=== PATIENT | female | born 1940 | race Caucasian/White ===

== ENCOUNTER → 2017-09-06 | Outpatient (REF) | payer MEDICARE, MEDICAID ==
[~2017-09-06] MED LIST: /WARF25TA OR; /WARF25TA PO; ACET65TA PO; AMLODIPINE BESYLATE PO; CALCIUM PLUS VIT D PO; CELEBREX PO; COUM2.5T17 PO; DYAZ37.5 OR; TYLE325T5 PO; ULTR50TA8 PO; [UNRECOGNIZED DRUG - OTHER]; fleet
[2017-09-06 12:34] LABS: ALBUMIN 3.6 GM/DL (3.2-5.2); ALBUMIN/GLOBULIN RATIO 1.13 (1.00-1.93); ALKALINE PHOSPHATASE 123 U/L (45-117); ALT/SGPT 16 U/L (12-78); ANION GAP 7 MEQ/L (8-16); AST/SGOT 13 U/L (15-37); BILIRUBIN,TOTAL 0.4 MG/DL (0.2-1.0); BLOOD UREA NITROGEN 16 MG/DL (7-18); CALCIUM LEVEL 9.1 MG/DL (8.8-10.2); CARBON DIOXIDE LEVEL 29 MEQ/L (21-32); CHLORIDE LEVEL 104 MEQ/L (98-107); CHOLESTEROL LEVEL 228 MG/DL (<200); CREATININE FOR GFR 0.76 MG/DL (0.55-1.02); GLOMERULAR FILTRATION RATE > 60.0 (>39); GLUCOSE, FASTING 91 MG/DL (83-110); POTASSIUM SERUM 3.7 MEQ/L (3.5-5.1); SODIUM LEVEL 140 MEQ/L (136-145); TOTAL PROTEIN 6.8 GM/DL (6.4-8.2); TRIGLYCERIDES LEVEL 85 MG/DL (<150)
== END ==
LOC: M SFHCCLAY 07:00
PROVIDERS: ATTEND Family Medicine
DX: E78.5 Hyperlipidemia, unspecified (principal)

== ENCOUNTER → 2017-10-19 | Outpatient (REF) | payer MEDICARE, MEDICAID ==
[2017-10-19 12:37] LABS: MEAN CORPUSCULAR HGB CONC 32.5 g/dl (32.0-36.5); MEAN CORPUSCULAR VOLUME 89.1 fl (80.0-96.0); PLATELET COUNT, AUTOMATED 275 10^3/uL (150-450); RED CELL DISTRIBUTION WIDTH 13.2 % (11.5-14.5)
== END ==
LOC: M LABDRAWC 11:41
PROVIDERS: ATTEND Obstetrics & Gynecology
DX: Z01.818 Encounter for other preprocedural examination (principal); N81.4 Uterovaginal prolapse, unspecified

== ENCOUNTER → 2018-01-17 | Outpatient (REF) | payer MEDICARE, MEDICAID ==
[2018-01-17 11:39] LABS: BASO # 0.1 10^3/uL (0.0-0.2); EOS # 0.3 10^3/uL (0.0-0.50); EOS % 4.7 % (0.0-3.0); HEMATOCRIT 40.1 % (36.0-47.0); HEMOGLOBIN 12.9 g/dl (12.0-16.0); IMMATURE GRANULOCYTE % 0.3 % (0-3.0); LYMPH # 1.6 10^3/uL (1.5-4.5); LYMPH % 25.4 % (24.0-44.0); MEAN CORPUSCULAR HEMOGLOBIN 28.5 pg (27.0-33.0); MEAN CORPUSCULAR HGB CONC 32.2 g/dl (32.0-36.5); MEAN CORPUSCULAR VOLUME 88.5 fl (80.0-96.0); MONO # 0.7 10^3/uL (0.0-0.8); MONO % 10.6 % (0.0-5.0); NEUTROPHILS # 3.6 10^3/uL (1.8-7.7); PLATELET COUNT, AUTOMATED 274 10^3/uL (150-450); RED BLOOD COUNT 4.53 10^6/uL (4.00-5.40); RED CELL DISTRIBUTION WIDTH 13.3 % (11.5-14.5); WHITE BLOOD COUNT 6.2 10^3/uL (4.0-10.0)
[2018-01-17 12:09] LABS: ALBUMIN 3.7 GM/DL (3.2-5.2); ALBUMIN/GLOBULIN RATIO 1.09 (1.00-1.93); ALKALINE PHOSPHATASE 120 U/L (45-117); ALT/SGPT 13 U/L (12-78); ANION GAP 6 MEQ/L (8-16); AST/SGOT 13 U/L (7-37); BILIRUBIN,TOTAL 0.5 MG/DL (0.2-1.0); BLOOD UREA NITROGEN 15 MG/DL (7-18); CARBON DIOXIDE LEVEL 31 MEQ/L (21-32); CHLORIDE LEVEL 106 MEQ/L (98-107); CHOLESTEROL LEVEL 249 MG/DL (<200); CHOLESTEROL RISK RATIO 3.276 (<5); GLOMERULAR FILTRATION RATE > 60.0 (>39); GLUCOSE, FASTING 86 MG/DL (70-100); HDL CHOLESTEROL 76 MG/DL (>40); LDL CHOLESTEROL 153.6 MG/DL (<100); NON-HDL-C 173 MG/DL; POTASSIUM SERUM 3.9 MEQ/L (3.5-5.1); SODIUM LEVEL 143 MEQ/L (136-145); TOTAL PROTEIN 7.1 GM/DL (6.4-8.2); TRIGLYCERIDES LEVEL 97 MG/DL (<150)
== END ==
LOC: M SFHCCLAY 07:00
DX: E78.5 Hyperlipidemia, unspecified (principal); I10 Essential (primary) hypertension
CPT/HCPCS: 80053

== ENCOUNTER 2018-02-02 05:59 | Day surgery (SDC) | payer MEDICARE, MEDICAID ==
[2018-02-02] MEDS ORDERED: CEFAZOLIN SOD 1 GM in APPROPRIATE DILUENT 1 EA IV (06:15)
[2018-02-02 06:26] LABS: HEMATOCRIT 40.9 % (36.0-47.0); HEMOGLOBIN 13.4 g/dl (12.0-16.0); MEAN CORPUSCULAR HEMOGLOBIN 28.8 pg (27.0-33.0); MEAN CORPUSCULAR HGB CONC 32.8 g/dl (32.0-36.5); MEAN CORPUSCULAR VOLUME 87.8 fl (80.0-96.0); PLATELET COUNT, AUTOMATED 250 10^3/uL (150-450); RED BLOOD COUNT 4.66 10^6/uL (4.00-5.40); RED CELL DISTRIBUTION WIDTH 13.4 % (11.5-14.5); WHITE BLOOD COUNT 7.1 10^3/uL (4.0-10.0)
[2018-02-02] MEDS: LR 1,000 ML IV (06:51)
[2018-02-02] MEDS ORDERED: ONDANSETRON 4MG/2ML VIAL (J2405) As Ordered (07:17)
[2018-02-02] MEDS ORDERED: METOCLOPRAMIDE INJ 10MG/2ML VIAL (J2765) As Ordered (07:17)
[2018-02-02] MEDS ORDERED: PROPOFOL 200 MG/20 ML VIAL As Ordered (07:17)
[2018-02-02] MEDS ORDERED: LIDOCAINE 2% INJ 100 MG/5 ML SDV (FOR ANES.) As Ordered (07:17)
[2018-02-02] MEDS ORDERED: fentaNYL 100 MCG/2 ML INJECTION (J3010) As Ordered ×2 (07:18→08:32)
[2018-02-02] MEDS: BUPIVACAINE/EPIN 0.5% 30 ML VIAL As Ordered (07:45)
[2018-02-02] MEDS ORDERED: ePHEDrine INJ 50 MG/ML VIAL As Ordered (07:46)
[2018-02-02] MEDS ORDERED: KETOROLAC 60 MG/2 ML VIAL (J1885) As Ordered (09:00)
[2018-02-02] MEDS ORDERED: fentaNYL 100 MCG/2 ML INJECTION (J3010) IV (09:45)
[2018-02-02] MEDS ORDERED: LR 1,000 ML IV ×2 (09:45)
[2018-02-02] MEDS ORDERED: ACETAMINOPHEN 500 MG TAB PO (09:45)
[2018-02-02] MEDS ORDERED: NORCO, ANEXSIA 5/325MG TABLET (HYDROcodone/ACETAMINOPHEN) PO (09:45)
[2018-02-02] MEDS ORDERED: IBUPROFEN 800 MG TAB PO (09:45)
== END 2018-02-02 13:30 | disposition home or self-care (01) ==
LOC: M SDC 05:59
DX: N81.6 Rectocele (principal); I10 Essential (primary) hypertension; M17.0 Bilateral primary osteoarthritis of knee; N81.89 Other female genital prolapse; R01.1 Cardiac murmur, unspecified; K59.00 Constipation, unspecified; R32 Unspecified urinary incontinence; E78.5 Hyperlipidemia, unspecified; H61.23 Impacted cerumen, bilateral; Z88.5 Allergy status to narcotic agent; Z87.81 Personal history of (healed) traumatic fracture; Z96.653 Presence of artificial knee joint, bilateral; Z86.59 Personal history of other mental and behavioral disorders; Z90.710 Acquired absence of both cervix and uterus
CPT/HCPCS: 57250

== ENCOUNTER 2018-12-10 08:37 | Inpatient (IN) | payer MEDICARE, MEDICAID ==
[~2018-12-10] VITALS: Ht 152.4 cm; Wt 77.1 kg
[~2018-12-10 08:37] MED LIST changes: +AMLO5TAB6 PO; +CELE1CAP9 PO
[2018-12-10] MEDS ORDERED: NS 1,000 ML IV ONE ×2 (09:00)
[2018-12-10] MEDS ORDERED: ISOVUE-370 76% 100ML VIAL (Q9967) As Ordered ONE (09:13)
[2018-12-10 09:15] LABS: ABG BASE EXCESS -14.6 (-2.0-2.0); ABG HCO3 11.8 MEQ/L (22.0-26.0); ABG O2 SATURATION 95.8 % (95.0-99.0); ABG PARTIAL PRESSURE CO2 30.1 mmHg (35.0-45.0); ABG PARTIAL PRESSURE O2 95.9 mmHg (75.0-100.0); ABG STANDARD HCO3 13.3 MEQ/L (22.0-26.0); ABG TOTAL CO2 12.8 MEQ/L (23.0-31.0)
[2018-12-10 09:20] LABS: ABG pH (ARTERIAL) 7.213 UNITS (7.350-7.450)
[2018-12-10] MEDS ORDERED: NOREPINEPHRINE BITARTRATE 8 MG in D5W 492 ML IV SCH (09:22)
[2018-12-10 09:25] LABS: BASO # 0.1 10^3/uL (0.0-0.2); BASO % 0.7 % (0.0-1.0); EOS # 0.2 10^3/uL (0.0-0.50); EOS % 2.7 % (0.0-3.0); HEMATOCRIT 38.6 % (36.0-47.0); HEMOGLOBIN 12.1 g/dl (12.0-15.5); LYMPH # 2.8 10^3/uL (1.5-4.5); LYMPH % 32.8 % (24.0-44.0); MEAN CORPUSCULAR HEMOGLOBIN 29.5 pg (27.0-33.0); MEAN CORPUSCULAR HGB CONC 31.3 g/dl (32.0-36.5); MEAN CORPUSCULAR VOLUME 94.1 fl (80.0-96.0); MONO # 0.5 10^3/uL (0.0-0.8); MONO % 6.2 % (0.0-5.0); NEUTROPHILS # 4.7 10^3/uL (1.8-7.7); PLATELET COUNT, AUTOMATED 284 10^3/uL (150-450); WHITE BLOOD COUNT 8.6 10^3/uL (4.0-10.0)
[2018-12-10] MEDS ORDERED: PIPERACILLIN/TAZOBACTAM SOD 4.5 GM in D5W MINI-BAG PLUS 50 ML IV ONE (09:30)
[2018-12-10] MEDS ORDERED: NS 500 ML IV ONE (09:30)
[2018-12-10 09:34] LABS: INR 1.08; PROTHROMBIN TIME 14.2 SECONDS (12.1-14.4)
[2018-12-10 09:35] LABS: PARTIAL THROMBOPLASTIN TIME 28.8 SECONDS (25.4-37.6)
--- NOTE | 2018-12-10 09:42 | REP ---
CT HEAD WITHOUT CONTRAST: HISTORY: Altered mental status. Areas of decreased attenuation are present in the periventricular and subcortical white matter. This represents small vessel ischemic disease. There is no intraparenchymal hemorrhage, mass or midline shift. The ventricular system is normal in appearance. There is no extracerebral collection. The visualized sinuses are clear. IMPRESSION: Small vessel ischemic disease. ? Electronically Signed by Mino Greenwood MD 12/10/2018 10:20 A
[2018-12-10 09:46] LABS: AMPHETAMINES LEVEL URINE NEGATIVE (NEGATIVE); BARBITURATES URINE NEGATIVE (NEGATIVE); BENZODIAZEPINES URINE NEGATIVE (NEGATIVE); CANNABINOIDS URINE NEGATIVE (NEGATIVE); COCAINE METABOLITE URINE NEGATIVE (NEGATIVE); METHADONE URINE NEGATIVE (NEGATIVE); OPIATES URINE NEGATIVE (NEGATIVE); PHENCYCLIDINE URINE NEGATIVE (NEGATIVE)
[2018-12-10] MEDS ORDERED: fentaNYL 100 MCG/2 ML INJECTION (J3010) As Ordered ONE (09:50)
--- NOTE | 2018-12-10 09:51 | REP ---
PORTABLE CHEST ON VIEW: HISTORY: Altered mental status. COMPARISON: 09/29/2014 Patchy density is present in the left lower lobe consistent with atelectasis or infiltrate. The right lung is clear. The cardiac silhouette is enlarged. The thoracic aorta is tortuous. The pulmonary vasculature is normal in appearance. IMPRESSION: 1. Left lower lobe atelectasis or infiltrate. 2. Cardiomegaly. Electronically Signed by Mino Greenwood MD 12/10/2018 10:21 A
[2018-12-10 09:58] LABS: ALT/SGPT 51 U/L (12-78); BLOOD UREA NITROGEN 18 MG/DL (7-18); CARBON DIOXIDE LEVEL 18 MEQ/L (21-32); CHLORIDE LEVEL 109 MEQ/L (98-107); CPK CREATINE PHOSPHOKINASE 66 U/L (26-192); CREATININE FOR GFR 0.93 MG/DL (0.55-1.30); GLOMERULAR FILTRATION RATE > 60.0 (>39); GLUCOSE, FASTING 312 MG/DL (70-100); MB/CK RELATIVE INDEX 1.82 (< OR =4); POTASSIUM SERUM 3.6 MEQ/L (3.5-5.1); SODIUM LEVEL 141 MEQ/L (136-145)
[2018-12-10] MEDS: fentaNYL 100 MCG/2 ML INJECTION (J3010) IV PRN ×3 (09:58→11:23)
[2018-12-10 09:59] LABS: ACETAMINOPHEN LEVEL 3.4 UG/ML (10.0-30.0); ALBUMIN 2.8 GM/DL (3.2-5.2); AMYLASE 81 U/L (25-115); BILIRUBIN,DIRECT 0.1 MG/DL (0.0-0.2); BILIRUBIN,TOTAL 0.3 MG/DL (0.2-1.0); C REACTIVE PROTEIN QUANTITATIV < 0.30 MG/DL (0.00-0.30); ETHYL ALCOHOL (ETHANOL) < 0.003 % (0.000-0.010); LIPASE 203 U/L (73-393); NT-PRO BNP 140 PG/ML (<450); SALICYLATE LEVEL < 1.7 MG/DL (5.0-30.0); TOTAL PROTEIN 5.6 GM/DL (6.4-8.2); TROPONIN I 0.11 NG/ML (< 0.10)
[2018-12-10] MEDS ORDERED: ONDANSETRON 4MG/2ML VIAL (J2405) IV ONE (10:00)
[2018-12-10] MEDS ORDERED: fentaNYL 100 MCG/2 ML INJECTION (J3010) IV ONE (10:00)
--- NOTE | 2018-12-10 10:02 | REP ---
CT ABDOMEN AND PELVIS WITH IV CONTRAST: HISTORY: Altered mental status. Hypotension. Severe abdominal pain. FINDINGS: Hemopericardium with cardiac tamponade and right heart strain findings as reported on the chest CT. No focal liver lesion is seen. Gallbladder is unremarkable. No adrenal lesion is observed. The aorta is not well opacified due to right heart failure. There is left colonic diverticulosis. Extensive vascular calcification is noted. Contrast opacified blood is refluxed into the renal vein on the right due to the right heart strain. In addition to the hepatic veins. A Paiz catheter is seen in the otherwise empty urinary bladder. IMPRESSION: Manifestations of right heart failure from cardiac tamponade as reported in chest CT. A Paiz catheter. Vascular calcification. Abdominal aorta not well opacified because of right heart failure delaying circulation time. No acute intra-abdominal abnormality noted. Electronically Signed by Evan Majano MD 12/10/2018 10:41 A
--- NOTE | 2018-12-10 10:16 | REP ---
CT pulmonary angiogram: With IV contrast. History: Altered mental status. Hypotension. Comparison studies: No comparison CT study. Comparison chest x-ray is from September 29, 2014. Contrast dose: 100 mL of Isovue [address] technique: Helical scanning is acquired and overlapping 1.5 mm and contiguous 3 mm axial images are reformatted. In addition, maximum intensity projection and multiplanar re-formation images are generated in sagittal and coronal imaging projections. CT pulmonary angiographic findings: There is good opacification of the pulmonary arterial tree. There is no CT evidence of pulmonary embolus. However, the right heart is compressed severely by a high attenuation moderate to large sized pericardial effusion consistent with cardiac tamponade. Right ventricle is quite small. There is a moderate amount of epicardial fat also noted within the pericardium. There is reflux of contrast opacified blood into the liver filling the hepatic veins significantly. This indicates right heart strain. There is poor opacification of the aorta but there is a hyperdense crescent along the anterior aspect of the ascending aorta consistent with aortic dissection versus acute intramural hematoma. There is no evidence of pleural effusion. There are small bubbles of intravascular air consistent with intravenous lines. No infiltrate is seen in the lung mcmahan. There is no evidence of hemoperitoneum or pneumoperitoneum. There is some edema in the soft tissues of the supraclavicular neck on the left. Impression: Findings consistent with ruptured ascending aortic type A dissection, complicated by hemoperitoneum and cardiac tamponade. Findings were telephoned to Dr. Teresita Shore in the ED at the time of this report . Electronically Signed by Evan Majano MD 12/10/2018 10:42 A
[2018-12-10] MEDS ORDERED: [UNRECOGNIZED DRUG - REMARK] (10:17)
[2018-12-10] MEDS ORDERED: SCOPOLAMINE 1MG TRANSDERMAL PATCH TOP PRN (10:30)
[2018-12-10] MEDS: MORPHINE 4 MG/ML 1ML VIAL/SYRINGE (J2270) IV PRN ×5 (12:25→21:00)
--- NOTE | 2018-12-10 17:02 | HPEPDOC ---
General Date of Admission Dec 10, 2018 at 10:35 Chief Complaint The patient is a 78-year-old female who presented to ER, brought in by EMS after patient was found down at home, complaining of abdominal pain. History of Present Illness Patient is a 78-year-old female with a PMHx of HTN, Arthritis, Uterine prolapse, Hx of alcoholism who presented to the ER, brought in by EMS after patient was found down at home completing of abdominal pain. In the emergency room, patient had CT scans of her chest, abdomen, which revealed a large ascending aortic aneurysm that was ruptured with type A dissection and complicated by hemoperitoneum and cardiac tamponade. Extensive discussion was had with ER physician, Dr. Teresita Shore and daughter (HCP), Indigo. Patient was ultimately made comfort measures only and MOLST form was updated. I have personally discussed the case with Indigo the healthcare proxy of Miss Woodall. Healthcare proxy is indicated that the patient was DO NOT RESUSCITATE and DO NOT INTUBATE initially and that she would not want to pursue any surgical intervention. At this point I have reviewed the MOLSt form and instituted comfort measures order set. Currently, patient is unable to provide any details to her history, as they are obtunded and unable to be aroused. Information was collected from prior medical records. Home Medications Scheduled (Celecoxib) 200 Mg Cap, 200 MG PO DAILY, (Reported) Amlodipine Besylate (Amlodipine Besylate) 5 Mg Tab, 5 MG PO DAILY, (Reported) Scheduled PRN Acetaminophen (Tylenol) 325 Mg Tab, 650 MG PO Q4HP PRN for TEMP OR DISCOMFORT, (Reported) Miscellaneous Medications [Commment] , (Reported) MED LIST OBTAINED FROM PHARMACY. Allergies Coded Allergies: Morphine (Verified Adverse Reaction, Mild, NAUSEA, 02/25/13) Past Medical History Medical History HTN, Arthritis, Uterine prolapse, Hx of alcoholism Surgical History Tonsilectomy and adenoidectomy in 1946 Hysterectomy 1994 Left knee hemiarthroplasty 2003 Uterine prolapse repair 2005 Left total knee arthroplasty 2010 Right knee total arthroplasty 2014 Family History - Noncontributory given advanced age Social History - Primary medical records indicate that patient has not used use of tobacco or illicit drugs; is an alcohol abuse in the past - Lives with alone Review of Systems Other systems Unable to be obtained, as patient is unable to be aroused Vital Signs - Vitals: BP 65/49, HR 83, RR 14, Sat 99%Non-rebreather, Temp (Not measured) - General: Lying in bed, No acute distress, Sleeping, - Full physical exam was not completed as patient was made comfortable prior to arrival Laboratory Data Labs 24H Laboratory Tests 2 12/10/18 08:55: Blood Gas Bicarbonate Standard 13.3L, Arterial Blood pH 7.213*L, Arterial Blood Partial Pressure CO2 30.1L, Arterial Blood Partial Pressure O2 95.9, Arterial Blood Total CO2 12.8L, Arterial Blood HCO3 11.8L, Arterial Blood Base Excess - 14.6L, Arterial Blood Oxygen Saturation 95.8, Anion Gap 14, Glomerular Filtration Rate > 60.0, Lactic Acid Level 7.9*H, Calcium Level 8.0L, Aspartate Amino Transf (AST/SGOT) 92H, Alanine Aminotransferase (ALT/SGPT) 51, Alkaline Phosphatase 110, Total Bilirubin 0.3, Direct Bilirubin 0.1, Ammonia < 10, Total Creatine Kinase 66, Creatine Kinase MB 1.0, Creatine Kinase MB Relative Index 1.82, Troponin I 0.11H, C-Reactive Protein, Quantitative < 0.30, BG-Wyh-T-Type Natriuretic Peptide 140, Total Protein 5.6L, Albumin 2.8L, Albumin/Globulin Ratio 1.00, Amylase Level 81, Lipase 203, Thyroid Stimulating Hormone (TSH) 9.310H, Salicylates Level < 1.7L, Acetaminophen Level 3.4L, Ethyl Alcohol Level < 0.003 12/10/18 09:07: Immature Granulocyte % (Auto) 2.6, White Blood Count 8.6, Red Blood Count 4.10, Hemoglobin 12.1, Hematocrit 38.6, Mean Corpuscular Volume 94.1, Mean Corpuscular Hemoglobin 29.5, Mean Corpuscular Hemoglobin Concent 31.3L, Red Cell Distribution Width 13.4, Platelet Count 284, Neutrophils (%) (Auto) 55.0, Lymphocytes (%) (Auto) 32.8, Monocytes (%) (Auto) 6.2H, Eosinophils (%) (Auto) 2.7, Basophils (%) (Auto) 0.7, Neutrophils # (Auto) 4.7, Lymphocytes # (Auto) 2.8, Monocytes # (Auto) 0.5, Eosinophils # (Auto) 0.2, Basophils # (Auto) 0.1, N ucleated Red Blood Cells % (auto) 0.0, Prothrombin Time 14.2, Prothromb Time International Ratio 1.08, Activated Partial Thromboplast Time 28.8, Urine Color YELLOW, Urine Appearance CLEAR, Urine pH 6.0, Urine Specific [place] 1.011, Urine Protein NEGATIVE, Urine Glucose (UA) NEGATIVE, Urine Ketones NEGATIVE, Urine Blood NEGATIVE, Urine Nitrite NEGATIVE, Urine Bilirubin NEGATIVE, Urine Urobilinogen 0.2, Urine Leukocyte Esterase NEGATIVE, Urine WBC (Auto) 0, Urine RBC (Auto) 1, Urine Hyaline Casts (Auto) 0, Urine Bacteria (Auto) NEGATIVE, Urine Squamous Epithelial Cells 0, Urine Sperm (Auto) , Urine Amphetamines Screen NEGATIVE, Urine Benzodiazepines Screen NEGATIVE, Urine Opiates Screen NEGATIVE, Urine Methadone Screen NEGATIVE, Urine Barbiturates Screen NEGATIVE, Urine Phencyclidine Screen NEGATIVE, Urine Cocaine Metabolite Screen NEGATIVE, Urine Cannabinoids Screen NEGATIVE CBC/BMP Laboratory Tests 12/10/18 08:55 12/10/18 09:07 Red Blood Count 4.10, Mean Corpuscular Volume 94.1, Mean Corpuscular Hemoglobin 29.5, Mean Corpuscular Hemoglobin Concent 31.3 L, Red Cell Distribution Width 13.4, Neutrophils (%) (Auto) 55.0, Lymphocytes (%) (Auto) 32.8, Monocytes (%) (Auto) 6.2 H, Eosinophils (%) (Auto) 2.7, Basophils (%) (Auto) 0.7, Neutrophils # (Auto) 4.7, Lymphocytes # (Auto) 2.8, Monocytes # (Auto) 0.5, Eosinophils # (Auto) 0.2, Basophils # (Auto) 0.1 Microbiology Microbiology 12/10/18 Blood Culture, Received Pending Plan / VTE VTE Prophylaxis Ordered?: No Plan Plan Assessment: Ruptured ascending aortic aneurysm type A dissection complicated with hemoperitoneum and cardiac tamponade Right heart failure Acute metabolic encephalopathy Lactic acidosis Hyperglycemia Possible hypothyroidism HTN Arthritis Uterine prolapse Hx of alcoholism DVT prophylaxis Plan: - Case is been thoroughly discussed with daughter (Indigo) who is the healthcare proxy - Patient was initially DNR and DNI - MOLST form has been updated to reflect comfort measures, as family would like to respect the patients wishes and not pursue any surgical intervention - Patient has been admitted to hospitalist service for comfort measures only - Nonessential medications have been discontinued; no lab work, imaging or vital signs - Morphine, Ativan and scopolamine have been instituted SAMANTHA STONE MD Dec 10, 2018 17:02
--- NOTE | 2018-12-10 18:10 | ECGEPIP ---
Stationary ECG Study [facility] - ED Test Date: 2018-12-10 Pat Name: DAREN HORTA Department: Room: - Gender: F Director Phone: : [phone] Requested By: Teresita Park Order Number: [id number] Reading MD: Teresita Park Measurements Intervals [place] Rate: 86 P: 70 [place]: 187 QRS: 42 QRSD: 81 T: 43 QT: 380 QTc: 456 Interpretive Statements SINUS RHYTHM WITH FREQUENT VENTRICULAR PREMATURE COMPLEXES ABNORMAL RHYTHM ECG ANTEROSEPTAL ST T WAVE CHANGES P NONSPECIFIC ST T WAVE CHANGES VS ISCHEMIA CW 09/29/14 RATE INCREASED INCREASED ECTOPY ANTEROSEPTAL ST T WAVE CHANGES - NONSPECIFIC VS ISCHEMIA Electronically Signed On 12-10-2018 18:09:58 EST by Teresita Park
[2018-12-10] MEDS: LORazepam 2 MG/ML VIAL (J2060) IV PRN ×2 (19:20→21:00)
[2018-12-10 21:00] VITALS: BP 65/49
[2018-12-11] MEDS: MORPHINE 4 MG/ML 1ML VIAL/SYRINGE (J2270) IV PRN (10:00)
[2018-12-12] MEDS: MORPHINE 4 MG/ML 1ML VIAL/SYRINGE (J2270) IV PRN (04:25)
[2018-12-13] MEDS: MORPHINE 4 MG/ML 1ML VIAL/SYRINGE (J2270) IV PRN ×2 (06:52→14:13)
--- NOTE | 2018-12-13 08:45 | IPNPDOC ---
Text Note Date of Service The patient was seen on 12/13/18. NOTE Subjective: Patient seen and examined at bedside. Patient obtunded, non-responsive. Objective: General: NAD, lying comfortably in bed, obtunded HEENT: NC/AT, nasal cannula in place, pinpoint pupils Lungs: coarse breath sounds Heart: +S1S2, RRR Abd: soft, +BS Ext: warm, peripheral pulses palpable A/P: 78 yo female found on floor, brought to ED by EMS found to be obtunded, imaging reveals ruptured ascending aortic type A dissection complicated with hemopericardium and cardiac tamponade. 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
[2018-12-13] MEDS: LORazepam 2 MG/ML VIAL (J2060) IV PRN (08:49)
--- NOTE | 2019-01-03 12:09 | DS.PDOC ---
Discharge Summary General Date of Admission Dec 12, 2018 at 09:42 Date of Discharge 12/13/18 Discharge Summary PROCEDURES PERFORMED DURING STAY: [None]. DISCHARGE DIAGNOSES: 1. Pericardial effusion/tamponade 2. Ruptured type A aortic dissection COMPLICATIONS/CHIEF COMPLAINT: Aortic Dissection,Cardiac Tamponade. HISTORY OF PRESENT ILLNESS: Patient is a 78-year-old female who presented to the ER, brought in by EMS after patient was found down at home completing of abdominal pain. In the emergency room, patient had CT scans of her chest, abdomen, which revealed a large ascending aortic aneurysm that was ruptured with type A dissection and complicated by hemoperitoneum and cardiac tamponade. Extensive discussion was had with ER physician, Dr. Teresita Shore and daughter (HCP), Indigo. Patient was ultimately made comfort measures only and MOLST form was updated. 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 Eventually on 12/13/18 at around 4:30 she peacefully . DISCHARGE MEDICATIONS: Patient . LABORATORY DATA: Please see below. DISPOSITION: 20 TIME SPENT ON DISCHARGE: Greater than 30 minutes. Discharge Medications Scheduled (Celecoxib) 200 Mg Cap, 200 MG PO DAILY, (Reported) Amlodipine Besylate (Amlodipine Besylate) 5 Mg Tab, 5 MG PO DAILY, (Reported) Scheduled PRN Acetaminophen (Tylenol) 325 Mg Tab, 650 MG PO Q4HP PRN for TEMP OR DISCOMFORT, (Reported) Miscellaneous Medications [Commment] , (Reported) MED LIST OBTAINED FROM PHARMACY. Allergies Coded Allergies: Morphine (Verified Adverse Reaction, Mild, NAUSEA, 02/25/13) ABI ACOSTA MD Jan 03, 2019 12:09
== END 2018-12-13 16:30 | disposition expired | DRG 299 ==
LOC: EDBD 08:37 → M ED 08:37 → M ED INP 10:35 → M MSPAV 21:34 → OBSVTOIN 12-12 09:42
PROVIDERS: ADMIT Internal Medicine; ATTEND Internal Medicine
DX: I71.01 Dissection of thoracic aorta (principal); G93.41 Metabolic encephalopathy; I31.4 Cardiac tamponade; I31.2 Hemopericardium, not elsewhere classified; E87.2 Acidosis; Z51.5 Encounter for palliative care; I10 Essential (primary) hypertension; M19.90 Unspecified osteoarthritis, unspecified site; F10.20 Alcohol dependence, uncomplicated; Z66 Do not resuscitate; Z88.5 Allergy status to narcotic agent; Z96.651 Presence of right artificial knee joint; Z96.652 Presence of left artificial knee joint